=== PATIENT | male | born 1980 | race Caucasian/White ===

== ENCOUNTER 2018-04-11 11:24 | Outpatient (CLI) | payer OTHER | END 2018-04-11 12:00 | disposition home or self-care (01) | LOC: NUCLEAR 11:24 | DX: E05.00 Thyrotoxicosis with diffuse goiter without thyrotoxic crisis or storm (principal) | CPT/HCPCS: 78013; A9512 ==

== ENCOUNTER 2018-04-17 12:57 | Outpatient (CLI) | payer OTHER | END 2018-04-17 13:23 | disposition home or self-care (01) | LOC: NUCLEAR 12:57 | DX: E05.00 Thyrotoxicosis with diffuse goiter without thyrotoxic crisis or storm (principal) | CPT/HCPCS: 79005; A9517 ==